=== PATIENT | female | born 1935 | race Caucasian/White ===

== ENCOUNTER 2021-10-20 11:27 | Emergency (ER) | payer OTHER ==
[~2021-10-20] VITALS: Ht 162.6 cm; Wt 74.8 kg
[~2021-10-20 11:27] MED LIST: ALENDRONATE SOD35 MG PO; CEPH500 PO; CRUTCH USE; DONE5 PO; ESTMETHS; HYZAAR; LISI5 PO; METF500C PO; Metoprolol Succ25 MG PO; OXYACE5T PO; SIMV10 PO; VENL37.5 PO
[2021-10-20] MEDS ORDERED: SERT50 PO (12:28)
[2021-10-20] MEDS ORDERED: ASPI325EC PO (12:29)
[2021-10-20] MEDS ORDERED: THERA-D2000 UNIT PO (12:30)
[2021-10-20] MEDS ORDERED: [UNRECOGNIZED DRUG - OTHER] (12:31)
[2021-10-20] MEDS ORDERED: TERB250 PO (12:31)
[2021-10-20 12:33] LABS: BASOPHILS ABSOLUTE AUTO 0.05 K/mm3 (0.00-0.23); BASOPHILS PERCENT AUTO 1 % (0-2); EOSINOPHILS ABSOLUTE AUTO 0.17 K/mm3 (0.00-0.68); EOSINOPHILS PERCENT AUTO 2 % (0-6); Hematocrit 39.3 % (33.0-51.0); Hemoglobin 12.6 g/dL (11.5-16.0); IMMATURE GRAN ABSOLUTE AUTO 0.05 K/mm3 (0.00-0.10); IMMATURE GRAN PERCENT AUTO 1 % (0-1); LYMPHOCYTES ABSOLUTE AUTO 1.37 K/mm3 (0.84-5.20); LYMPHOCYTES PERCENT AUTO 14 % (21-46); MONOCYTES ABSOLUTE AUTO 0.88 K/mm3 (0.16-1.47); MONOCYTES PERCENT AUTO 9 % (4-13); Mean Corpuscular HGB 30.6 pg (26.0-34.0); Mean Corpuscular HGB Conc 32.1 g/dL (31.5-36.5); Mean Corpuscular Volume 95 fL (80-100); Mean Platelet Volume 10.9 fL (9.1-12.4); NEUTROPHILS PERCENT AUTO 74 % (41-73); Platelet Count 215 K/mm3 (150-400); Red Blood Cell Count 4.12 M/mm3 (3.80-5.20); White Blood Cell Count 9.82 K/mm3 (4.00-11.30)
[2021-10-20 12:44] LABS: Bun/Creatinine Ratio 12.1 (12.0-20.0); Calcium, Blood 9.2 mg/dL (8.5-10.1); Creatinine, Blood 0.91 mg/dL (0.40-1.00); Potassium, Blood 3.5 mmol/L (3.5-5.5)
[2021-10-20 13:05] LABS: Source, Urine Clean Catch
[2021-10-20 13:12] LABS: Appearance, Urine Clear (Clear); Bilirubin, Urine Neg (Neg); Blood, Urine 1+ (Neg); Color, Urine Yellow (P-Yellow); Glucose Qualitative, Urine Neg (Neg); Ketones, Urine Neg (Neg); Leukocyte Esterase, Urine Neg (Neg); Nitrite, Urine Neg (Neg); Protein, Urine 2+ (Neg); Specific Gravity, Urine 1.025 (1.003-1.022); Urobilinogen, Urine 1+ (Normal)
[2021-10-20 13:21] LABS: Hyaline Casts 0-2 /lpf (0-2); Mucus Light (0-Heavy)
[2021-10-20 13:22] LABS: Bacteria Mod /hpf; Red Blood Cells, Urine Rare /hpf (0-2); Squamous Epithelial Cells Rare /hpf (Few); White Blood Cells, Urine 0-2 /hpf (0-5)
[2021-10-20 13:55] LABS: Influenza A, PCR NEGATIVE (NEGATIVE); Influenza B, PCR NEGATIVE (NEGATIVE); Resp Syncytial Virus, PCR NEGATIVE (NEGATIVE); SARS-Cov-2 (COVID-19) PCR, MMC NEGATIVE (NEGATIVE)
[2021-10-20] MEDS ORDERED: NITR100CA PO (15:46)
== END 2021-10-20 17:13 | disposition home or self-care (01) ==
LOC: ER 11:27
PROVIDERS: Student in an Organized Health Care Education/Training Program
DX: F01.50 Vascular dementia, unspecified severity, without behavioral disturbance, psychotic disturbance, mood disturbance, and anxiety (principal); N39.0 Urinary tract infection, site not specified; R29.6 Repeated falls; I10 Essential (primary) hypertension; E11.9 Type 2 diabetes mellitus without complications; Z20.822 Contact with and (suspected) exposure to COVID-19; Z73.6 Limitation of activities due to disability; Z88.8 Allergy status to other drugs, medicaments and biological substances; Z79.899 Other long term (current) drug therapy; Z79.84 Long term (current) use of oral hypoglycemic drugs; Z79.82 Long term (current) use of aspirin; Z86.73 Personal history of transient ischemic attack (TIA), and cerebral infarction without residual deficits
CPT/HCPCS: 0241U; 70450; 80048; 81001; 85025; 87086; 93005; 93010; 96374; 99284-25; A9270; J0360

== ENCOUNTER → 2022-04-05 | Outpatient (CLI) | payer OTHER ==
[~2022-04-05] MED LIST changes: +ASPI325EC PO; +NITR100CA PO; +SERT50 PO; +TERB250 PO; +THERA-D2000 UNIT PO; +[UNRECOGNIZED DRUG - OTHER]
[2022-04-06 13:09] LABS: Source, Urine Clean Catch
[2022-04-06 15:28] LABS: Appearance, Urine Clear (Clear); Bilirubin, Urine Neg (Neg); Blood, Urine Neg (Neg); Color, Urine Yellow (P-Yellow); Glucose Qualitative, Urine Neg (Neg); Ketones, Urine Neg (Neg); Leukocyte Esterase, Urine 2+ (Neg); Nitrite, Urine Pos (Neg); Protein, Urine Neg (Neg); Urobilinogen, Urine NORM (Normal)
[2022-04-06 15:39] LABS: Bacteria Many /hpf; Calcium Oxalate Crystals Mod /hpf; Red Blood Cells, Urine 0-2 /hpf (0-2); Squamous Epithelial Cells Mod /hpf (Few)
== END | disposition home or self-care (01) ==
LOC: LAB SHORT 15:50
PROVIDERS: Family Medicine
DX: N39.0 Urinary tract infection, site not specified (principal)
CPT/HCPCS: 81001; 87077; 87086; 87186

== ENCOUNTER → 2022-05-24 | Outpatient (CLI) | payer OTHER ==
[2022-05-24 20:22] LABS: Source, Urine Clean Catch
[2022-05-24 20:26] LABS: Bilirubin, Urine Neg (Neg); Blood, Urine 1+ (Neg); Glucose Qualitative, Urine Neg (Neg); Ketones, Urine Neg (Neg); Leukocyte Esterase, Urine 3+ (Neg); Nitrite, Urine Pos (Neg); Protein, Urine Neg (Neg); Specific Gravity, Urine 1.015 (1.003-1.022); Urobilinogen, Urine NORM (Normal)
[2022-05-24 20:36] LABS: Appearance, Urine Clear (Clear); Bacteria Mod /hpf; Color, Urine Yellow (P-Yellow); Red Blood Cells, Urine 0-2 /hpf (0-2); Squamous Epithelial Cells Not Seen /hpf (Few)
== END | disposition home or self-care (01) ==
LOC: LAB SHORT 11:00 → LAB 11:00
PROVIDERS: Family Medicine
DX: N39.0 Urinary tract infection, site not specified (principal)
CPT/HCPCS: 81001; 87077; 87086; 87186

== ENCOUNTER → 2022-07-20 | Outpatient (CLI) | payer OTHER ==
[2022-07-20 18:36] LABS: Source, Urine Clean Catch
[2022-07-20 19:49] LABS: Appearance, Urine Hazy (Clear); Bilirubin, Urine Neg (Neg); Blood, Urine 1+ (Neg); Color, Urine Yellow (P-Yellow); Glucose Qualitative, Urine Neg (Neg); Ketones, Urine Neg (Neg); Leukocyte Esterase, Urine 3+ (Neg); Nitrite, Urine Pos (Neg); Protein, Urine Neg (Neg); Specific Gravity, Urine 1.015 (1.003-1.022); Urobilinogen, Urine NORM (Normal)
[2022-07-20 20:01] LABS: Red Blood Cells, Urine 0-2 /hpf (0-2); White Blood Cells, Urine 25-50 /hpf (0-5)
[2022-07-20 20:02] LABS: Bacteria Many /hpf; Squamous Epithelial Cells Rare /hpf (Few)
== END ==
LOC: LAB 11:00 → LAB SHORT 11:00
PROVIDERS: Family Medicine
DX: N39.0 Urinary tract infection, site not specified (principal)
CPT/HCPCS: 81001; 87077; 87086; 87186

== ENCOUNTER → 2022-10-09 | Outpatient (CLI) | payer OTHER ==
[2022-10-10 12:45] LABS: Source, Urine Clean Catch
[2022-10-10 13:29] LABS: Appearance, Urine Clear (Clear); Bilirubin, Urine Neg (Neg); Blood, Urine 1+ (Neg); Color, Urine Yellow (P-Yellow); Glucose Qualitative, Urine Neg (Neg); Ketones, Urine Neg (Neg); Leukocyte Esterase, Urine 1+ (Neg); Nitrite, Urine Pos (Neg); Protein, Urine 1+ (Neg); Urobilinogen, Urine NORM (Normal)
[2022-10-10 14:23] LABS: Bacteria Many /hpf; Calcium Oxalate Crystals Few /hpf; Squamous Epithelial Cells Few /hpf (Few)
== END ==
LOC: LAB 12:39 → LAB SHORT 12:39
PROVIDERS: Family Medicine
DX: N39.0 Urinary tract infection, site not specified (principal)
CPT/HCPCS: 81001; 87077; 87086; 87186

== ENCOUNTER → 2023-04-24 | Outpatient (CLI) | payer OTHER ==
[2023-04-25 11:50] LABS: Source, Urine Clean Catch
[2023-04-25 14:23] LABS: Appearance, Urine Hazy (Clear); Bilirubin, Urine Neg (Neg); Blood, Urine 1+ (Neg); Color, Urine Yellow (P-Yellow); Glucose Qualitative, Urine Neg (Neg); Ketones, Urine Neg (Neg); Leukocyte Esterase, Urine 1+ (Neg); Nitrite, Urine Pos (Neg); Protein, Urine 1+ (Neg); Urobilinogen, Urine NORM (Normal)
[2023-04-25 15:15] LABS: Bacteria Many /hpf; Squamous Epithelial Cells Few /hpf (Few)
== END ==
LOC: LAB 11:48 → LAB SHORT 11:48
PROVIDERS: Family Medicine
DX: N39.0 Urinary tract infection, site not specified (principal)
CPT/HCPCS: 81001; 87077; 87086; 87186

== ENCOUNTER → 2023-05-24 | Outpatient (CLI) | payer OTHER ==
[2023-05-25 18:25] LABS: Appearance, Urine Hazy (Clear); Bilirubin, Urine Neg (Neg); Blood, Urine 1+ (Neg); Color, Urine Amber (P-Yellow); Glucose Qualitative, Urine Neg (Neg); Ketones, Urine Neg (Neg); Leukocyte Esterase, Urine 3+ (Neg); Nitrite, Urine Pos (Neg); Protein, Urine 1+ (Neg); Specific Gravity, Urine 1.025 (1.003-1.022); Urobilinogen, Urine NORM (Normal)
[2023-05-25 18:39] LABS: Bacteria Many /hpf; Calcium Oxalate Crystals Few /hpf; Squamous Epithelial Cells Mod /hpf (Few)
== END | disposition home or self-care (01) ==
LOC: LAB 18:28 → LAB SHORT 18:28
PROVIDERS: Family Medicine
DX: N39.0 Urinary tract infection, site not specified (principal)
CPT/HCPCS: 81001; 87077; 87086; 87186

== ENCOUNTER → 2023-06-02 | Outpatient (CLI) | payer OTHER ==
[2023-06-04 06:11] LABS: HEMOGLOBIN A1C 6.3 % (4.8-5.6)
== END | disposition home or self-care (01) ==
LOC: LAB SHORT 13:47 → LAB 13:47
PROVIDERS: Family Medicine
DX: E11.9 Type 2 diabetes mellitus without complications (principal)
CPT/HCPCS: 83036

== ENCOUNTER 2023-06-27 13:20 | Inpatient (IN) | payer OTHER ==
[~2023-06-27] VITALS: Ht 160 cm; Wt 57.1 kg
[2023-06-27 15:14] LABS: Albumin, Blood 2.4 g/dL (3.4-5.0); Albumin/Globulin Ratio 1.1 (0.8-1.8); Bilirubin, Total 0.4 mg/dL (0.1-1.0); Bun/Creatinine Ratio 36.2 (12.0-20.0); Calcium, Blood 6.8 mg/dL (8.5-10.1); Creatinine, Blood 0.66 mg/dL (0.40-1.00); Globulin, Blood 2.2 g/dL (2.2-4.0); Potassium, Blood 3.4 mmol/L (3.5-5.5); Total Protein, Blood 4.6 g/dL (6.4-8.2)
[2023-06-27 15:44] LABS: BASOPHILS ABSOLUTE AUTO 0.06 K/mm3 (0.00-0.23); BASOPHILS PERCENT AUTO 0 % (0-2); EOSINOPHILS ABSOLUTE AUTO 0.06 K/mm3 (0.00-0.68); EOSINOPHILS PERCENT AUTO 0 % (0-6); Hematocrit 43.4 % (33.0-51.0); Hemoglobin 14.5 g/dL (11.5-16.0); IMMATURE GRAN ABSOLUTE AUTO 0.11 K/mm3 (0.00-0.10); IMMATURE GRAN PERCENT AUTO 1 % (0-1); LYMPHOCYTES ABSOLUTE AUTO 1.45 K/mm3 (0.84-5.20); LYMPHOCYTES PERCENT AUTO 9 % (21-46); MONOCYTES ABSOLUTE AUTO 1.14 K/mm3 (0.16-1.47); MONOCYTES PERCENT AUTO 7 % (4-13); Mean Corpuscular HGB 30.1 pg (26.0-34.0); Mean Corpuscular HGB Conc 33.4 g/dL (31.5-36.5); Mean Corpuscular Volume 90 fL (80-100); Mean Platelet Volume 10.5 fL (9.1-12.4); NEUTROPHILS PERCENT AUTO 83 % (41-73); Platelet Count 222 K/mm3 (150-400); RDW Coefficient Variation 13.7 % (11.7-14.2); RDW Standard Deviation 45.4 fL (35.1-46.3); Red Blood Cell Count 4.82 M/mm3 (3.80-5.20); White Blood Cell Count 16.52 K/mm3 (4.00-11.30)
[2023-06-27 17:19] LABS: Source, Urine Straight Cath
[2023-06-27 17:24] LABS: Appearance, Urine Hazy (Clear); Bilirubin, Urine Neg (Neg); Blood, Urine 1+ (Neg); Color, Urine Yellow (P-Yellow); Glucose Qualitative, Urine Neg (Neg); Ketones, Urine 3+ (Neg); Leukocyte Esterase, Urine 3+ (Neg); Nitrite, Urine Pos (Neg); Protein, Urine 2+ (Neg); Urobilinogen, Urine NORM (Normal)
[2023-06-27 17:42] LABS: Amorphous Light (0-Heavy); Bacteria Many /hpf; Red Blood Cells, Urine 0-2 /hpf (0-2); Squamous Epithelial Cells Not Seen /hpf (Few); White Blood Cells, Urine 25-50 /hpf (0-5)
--- NOTE | 2023-06-27 19:35 | NUR ---
PT ADMIT PT ARRIVED FROM ER VIA GURNEY. PT VERY PAINFUL AND CONTINUES TO MAKE RANDOM STATEMENTS OF HER HEAD HURTING, AND "I AM GONNA " DAUGHTER W/ PT AND REPORTS TO STAY THE NIGHT. IVF W/ KCL INFUSING @100ML/HR TO L HAND. SKIN ASSESSMENT COMPLETED W/ NO VISIBLE CONCERNS. PEDAL PULSES PALPITABLE, PT DENIES N/T. REMOVED LINEN AND CHANGED ATTENDS AT THIS TIME. PUR WIC PLACED. WILL CONTINUE TO MONITOR PAIN AND MEDICATE PER EMAR.
[2023-06-27 19:53] VITALS: BP 185/119
[2023-06-28] VITALS (24 sets, daily range): BP systolic 98–194; BP diastolic 55–119
[2023-06-28 04:17] LABS: BASOPHILS ABSOLUTE AUTO 0.04 K/mm3 (0.00-0.23); BASOPHILS PERCENT AUTO 0 % (0-2); EOSINOPHILS ABSOLUTE AUTO 0.01 K/mm3 (0.00-0.68); EOSINOPHILS PERCENT AUTO 0 % (0-6); Hematocrit 39.4 % (33.0-51.0); Hemoglobin 12.7 g/dL (11.5-16.0); IMMATURE GRAN ABSOLUTE AUTO 0.04 K/mm3 (0.00-0.10); IMMATURE GRAN PERCENT AUTO 0 % (0-1); LYMPHOCYTES ABSOLUTE AUTO 1.29 K/mm3 (0.84-5.20); LYMPHOCYTES PERCENT AUTO 11 % (21-46); MONOCYTES ABSOLUTE AUTO 1.19 K/mm3 (0.16-1.47); MONOCYTES PERCENT AUTO 10 % (4-13); Mean Corpuscular HGB 29.5 pg (26.0-34.0); Mean Corpuscular HGB Conc 32.2 g/dL (31.5-36.5); Mean Corpuscular Volume 91 fL (80-100); Mean Platelet Volume 10.7 fL (9.1-12.4); NEUTROPHILS ABSOLUTE AUTO 9.27 K/mm3 (1.96-9.15); NEUTROPHILS PERCENT AUTO 78 % (41-73); Platelet Count 172 K/mm3 (150-400); RDW Coefficient Variation 13.7 % (11.7-14.2); RDW Standard Deviation 46.5 fL (35.1-46.3); Red Blood Cell Count 4.31 M/mm3 (3.80-5.20); White Blood Cell Count 11.84 K/mm3 (4.00-11.30)
[2023-06-28 04:41] LABS: Magnesium, Blood 2.1 mg/dL (1.6-2.4)
[2023-06-28 04:45] LABS: Albumin, Blood 3.3 g/dL (3.4-5.0); Albumin/Globulin Ratio 1.1 (0.8-1.8); Bilirubin, Total 0.6 mg/dL (0.1-1.0); Bun/Creatinine Ratio 28.6 (12.0-20.0); Calcium, Blood 8.7 mg/dL (8.5-10.1); Creatinine, Blood 0.73 mg/dL (0.40-1.00); Globulin, Blood 2.9 g/dL (2.2-4.0); Potassium, Blood 4.1 mmol/L (3.5-5.5); Total Protein, Blood 6.2 g/dL (6.4-8.2)
--- NOTE | 2023-06-28 04:59 | NUR ---
SHIFT SUMMARY ADMIT FOR L HIP FX R/T FALL FROM W/C. PT VERY PAINFUL T/O NIGHT. HX DEMENTIA @BASELINE. PT CONTINUES TO MAKE COMMENTS R/T SHE IS GONNA . DAUGHTER, LORE, IN ROOM FOR SUPPORT. PT MEDICATED X2 W/ 25MCG FENTANYL AND 1X NORCO 5MG, W/ MINIMAL RELIEF. ORTHO CONSULT W/ KRNACIK PLANNED FOR TODAY, NPO @MN. MINIMAL OUTPUT IN PUR WIC ATHOUGH 1000ML FLUIDS ADMINISTERED. BP CONTINUES TO BE ELEVATED, W/ LISINOPRIL SCHEDULED FOR TODAY. NO ACUTE CHANGES THIS SHIFT. ADVANCED DIRECTIVE ON FRONT OF CHART. CALL LIGHT W/IN REACH ALTHOUGH PT UNABLE TO USE R/T CONGNITION.
--- NOTE | 2023-06-28 10:10 | NUR ---
Pt resting in bed and is A&O to self only. Pt appears mildly anxious upon arrival but then closes her eyes and calms. Pt left undisturbed at this point. Called and spoke with Pt's son who is listed as Primary Healthcare Production Control Expert on advanced directive. Provided updated and reviewed plan of care. Discussed Pt's code status wishes. Ramana Ahuja reports Pt's wishes are DNR. Engaged in brief and gentle discussion regarding advanced care planning. Discussed the importance of planning for the future. Educated on disease process including trajectory. Offered therapeutic listening and answered questions. Discussed completing a POLST over the phone with Seymour requesting waiting until she is closer to D/C before completing POLST. Seymour expresses appreciation and reports no other concerns at this time. Spoke with Dr Kaye and relayed code status wishes. Placed DNR order in [facility] per V/O from Dr Kaye. Ramana Ahjua ([facility]) [phone] Palliative Care will remain available
--- NOTE | 2023-06-28 11:15 | NUR ---
PT TO OR AT THIS TIME
--- NOTE | 2023-06-28 11:33 | NUR ---
20G IV SITE L HAND, PATENT.
--- NOTE | 2023-06-28 11:54 | NUR ---
PATIENT C/O OF LEFT HIP PAIN. MEDICATED WITH FENTANYL 50MCG IV PER ORDERS. GOOD RELIEF WITH PAIN MED. PATIENT STATES "YES" TO HAVE GOOD PAIN RELIEF. CONTINUE TO MONITOR. FAMILY MEMBERS AT BEDSIDE. AWAITING IN DAY SURGERY FOR LEFT HIP SURGERY WITH DR SORIA.
[2023-06-28] MEDS ORDERED: QUET100 PO (13:26)
[2023-06-28] MEDS ORDERED: SENNA LAXATIVE8.6 MG PO (13:27)
[2023-06-28] MEDS ORDERED: ACET120S (13:28)
[2023-06-28] MEDS ORDERED: BISA10S (13:40)
[2023-06-28] MEDS ORDERED: HYDR1TAB94 PO (13:40)
[2023-06-28] MEDS ORDERED: ACET325 PO (13:41)
[2023-06-28] MEDS ORDERED: DULCOLAX400 MG/5 M PO (13:42)
[2023-06-28] MEDS ORDERED: Seroquel Xr50 MG PO (13:43)
--- NOTE | 2023-06-28 17:57 | NUR ---
POST OP: REPORT RECEIVED FROM TECHNICAL DEVELOPER ROSE. PT TO UNIT AT ABOUT 1600. PT IS DROWSY, BUT OPENS EYES AND ANSWERS TO NAME. SURGICAL SITE WNL. DIFFICULTLY WITH SPO2 PROBE READING A CONSISTANT HR. HR RANGED FROM 30 BPM TO 90. UPON ASCULTATION, HEART BEAT SOUNDS IRREGULAR. PT APPEARS CALM AND RESTFUL, DOES NOT REPORT CP. DR. WELDON MADE AWARE OF THE ABOVE AND TELE ORDERED. TELE APPLIED AND VERIFIED AT ABOUT 1700 WITH PCU DRY CLEANING MACHINE OPERATOR HELPER- PER TIPPLE SUPERVISORHAKEEM ALEMAN TELE READS NSR WITH BBB, HR 97. WILL CTM
[2023-06-29 02:39] VITALS: BP 127/73
[2023-06-29 05:17] LABS: BASOPHILS ABSOLUTE AUTO 0.01 K/mm3 (0.00-0.23); BASOPHILS PERCENT AUTO 0 % (0-2); EOSINOPHILS PERCENT AUTO 0 % (0-6); Hematocrit 33.5 % (33.0-51.0); Hemoglobin 11.1 g/dL (11.5-16.0); IMMATURE GRAN ABSOLUTE AUTO 0.06 K/mm3 (0.00-0.10); IMMATURE GRAN PERCENT AUTO 0 % (0-1); LYMPHOCYTES ABSOLUTE AUTO 1.34 K/mm3 (0.84-5.20); LYMPHOCYTES PERCENT AUTO 10 % (21-46); MONOCYTES ABSOLUTE AUTO 1.75 K/mm3 (0.16-1.47); MONOCYTES PERCENT AUTO 13 % (4-13); Mean Corpuscular HGB 30.1 pg (26.0-34.0); Mean Corpuscular HGB Conc 33.1 g/dL (31.5-36.5); Mean Corpuscular Volume 91 fL (80-100); Mean Platelet Volume 11.4 fL (9.1-12.4); NEUTROPHILS ABSOLUTE AUTO 10.21 K/mm3 (1.96-9.15); NEUTROPHILS PERCENT AUTO 76 % (41-73); Platelet Count 154 K/mm3 (150-400); RDW Coefficient Variation 13.8 % (11.7-14.2); RDW Standard Deviation 46.4 fL (35.1-46.3); Red Blood Cell Count 3.69 M/mm3 (3.80-5.20); White Blood Cell Count 13.37 K/mm3 (4.00-11.30)
--- NOTE | 2023-06-29 05:33 | NUR ---
SHIFT SUMMARY POD 1 L HIP PINNING, GAUZE/ PRESSURE TAP TO SITE. DX DEMENTIA, PLEASANTLY CONFUSED, CALLS OUT FOR HELP FREQUENTLY BUT UNABLE TO RECALL WHY. NEW IV TO R FA @80/HR. TELE IN PLACE ST@108 PER ELECTRICAL ASSEMBLER. HX OF HTN. USE OF O2 2L NC BUT PT CONTINUES TO REMOVE FROM FACE AND BECOMES IRRITABLE WHEN STAFF CONTINUES TO REPLACE.INCONTINENT W/ ATTENDS IN PLACE. NO ACUTE CHANGES THIS SHIFT. CALL LIGHT W/IN REACH ALTHOUGH PT COGNITIVELY UNABLE TO USE.
[2023-06-29 05:41] LABS: Bun/Creatinine Ratio 21.4 (12.0-20.0); Calcium, Blood 8.5 mg/dL (8.5-10.1); Creatinine, Blood 0.84 mg/dL (0.40-1.00); Magnesium, Blood 1.8 mg/dL (1.6-2.4); Potassium, Blood 4.2 mmol/L (3.5-5.5)
[2023-06-29 07:04] VITALS: BP 126/85
--- NOTE | 2023-06-29 11:58 | NUR ---
CALL TO ORE GRADER NOTIFIED THIS RN OF RUN OF SVT. PATIENT SITTING IN CHAIR, HAS NO COMPLAINTS, APPEARS TO BE COMFORTABLE. CALL TO DR VILLARREAL TO [facility], NO ORDERS RECEIVED.
[2023-06-29 15:16] VITALS: BP 96/70
--- NOTE | 2023-06-29 17:05 | NUR ---
SHIFT SUMMARY NO ACUTE CHANGES THIS SHIFT. PATIENT UP TO CHAIR T/O SHIFT WITH PHYSICAL THERAPY. PATIENT SLEPT MOST OF SHIFT, MEDICATED FOR PAIN WHEN PATIENT APPEARED PAINFUL. DRESSINGS IN [facility], C/D/I. WILL REPORT TO ONCOMING RN AT 1900.
[2023-06-29 19:45] VITALS: BP 120/92
[2023-06-29 22:39] VITALS: BP 157/84
--- NOTE | 2023-06-29 23:00 | NUR ---
TELE CALLED TO REPORT HR IN THE 150'S FOR ABOUT 5 BEATS NOT SUSTANING, CALL PLACED TO RESIDENT NO ORDERS RECIEVED. HOME MED SEROQUEL ORDER RECIEVED. VSS. BED ALARM ON.
[2023-06-30 03:28] VITALS: BP 113/78
--- NOTE | 2023-06-30 04:47 | NUR ---
SHIFT SUMMARYPATIENT AOX1. CALLS OUT T/O NIGHT. TAKE MEDS CRUSHED IN PUDDING. TELE IN PLACE, S[place] IN 110-120'S. 2 PERSON TRANSFER WITH GB TO BED. ATTENDS CHANGED PRN, INCONT. WITH VOIDS. BED ALARM IS IN PLACE. HOME DOSE SEROQUEL ORDERED AND ADMINISTERED. PATIENT ABLE TO GET SOME REST. REPOSITION PRN. BP WNL. CALL LIGHT IN REACH. WILL REPORT TO DAY NURSE.
[2023-06-30 05:35] LABS: BASOPHILS ABSOLUTE AUTO 0.06 K/mm3 (0.00-0.23); BASOPHILS PERCENT AUTO 1 % (0-2); EOSINOPHILS ABSOLUTE AUTO 0.18 K/mm3 (0.00-0.68); EOSINOPHILS PERCENT AUTO 2 % (0-6); Hematocrit 28.7 % (33.0-51.0); Hemoglobin 9.4 g/dL (11.5-16.0); IMMATURE GRAN ABSOLUTE AUTO 0.05 K/mm3 (0.00-0.10); IMMATURE GRAN PERCENT AUTO 1 % (0-1); LYMPHOCYTES ABSOLUTE AUTO 1.44 K/mm3 (0.84-5.20); LYMPHOCYTES PERCENT AUTO 17 % (21-46); MONOCYTES ABSOLUTE AUTO 1.12 K/mm3 (0.16-1.47); MONOCYTES PERCENT AUTO 13 % (4-13); Mean Corpuscular HGB 30.3 pg (26.0-34.0); Mean Corpuscular HGB Conc 32.8 g/dL (31.5-36.5); Mean Corpuscular Volume 93 fL (80-100); NEUTROPHILS ABSOLUTE AUTO 5.79 K/mm3 (1.96-9.15); NEUTROPHILS PERCENT AUTO 67 % (41-73); Platelet Count 124 K/mm3 (150-400); RDW Coefficient Variation 13.8 % (11.7-14.2); RDW Standard Deviation 46.7 fL (35.1-46.3); White Blood Cell Count 8.64 K/mm3 (4.00-11.30)
[2023-06-30 07:14] VITALS: BP 107/73
[2023-06-30 09:30] LABS: Hematocrit 29.8 % (33.0-51.0); Hemoglobin 9.7 g/dL (11.5-16.0)
--- NOTE | 2023-06-30 11:37 | NUR ---
DISCHARGE: PER DR. FARIAS HGB AND TELE STABLE FOR DC. THIS RN ATTEMPTED TO CALL [facility] TO GIVE RN REPORT, MESSAGE LEFT AND AWAITING CALL BACK. PT HELPED TO GET DRESSED IN OWN CLOTHES AND IV DC'D BY G[employer]. TRANSPORT HERE AT 1100. PT TRANSFERED TO WHEELCHAIR WITH 3 ASSIST. TRANSPORTER GIVEN PACKET AND EXTRA AQUACEL DRESSINGS. PT DAUGHTER PRESENT TO SIGN PAPERWORK FOR ACCOUNT ENGINEER, RODOLFO. PT LEFT UNIT VIA WHEELCHAIR WITH TRANSPORT AT 1115
== END 2023-06-30 12:00 | disposition home or self-care (01) | DRG 480 ==
LOC: ER 13:20 → SURS 18:19
PROVIDERS: Emergency Medicine; Family Medicine; Orthopaedic Surgery; ADMIT Internal Medicine
PROC: 0QS736Z Reposition Left Upper Femur with Intramedullary Internal Fixation Device, Percutaneous Approach (ICD-10-PCS; 2023-06-28)
PROC: 3E03329 Introduction of Other Anti-infective into Peripheral Vein, Percutaneous Approach (ICD-10-PCS; principal; 2023-06-28 13:00)
DX: S72.142A Displaced intertrochanteric fracture of left femur, initial encounter for closed fracture (principal); A41.51 Sepsis due to Escherichia coli [E. coli]; N39.0 Urinary tract infection, site not specified; F03.90 Unspecified dementia, unspecified severity, without behavioral disturbance, psychotic disturbance, mood disturbance, and anxiety; E11.9 Type 2 diabetes mellitus without complications; I10 Essential (primary) hypertension; D64.89 Other specified anemias; E78.00 Pure hypercholesterolemia, unspecified; F99 Mental disorder, not otherwise specified; W05.0XXA Fall from non-moving wheelchair, initial encounter; Z88.0 Allergy status to penicillin; Z88.5 Allergy status to narcotic agent; Z88.2 Allergy status to sulfonamides; Z88.8 Allergy status to other drugs, medicaments and biological substances; Z88.1 Allergy status to other antibiotic agents; Z79.84 Long term (current) use of oral hypoglycemic drugs; Z79.82 Long term (current) use of aspirin; Z79.899 Other long term (current) drug therapy; Z86.73 Personal history of transient ischemic attack (TIA), and cerebral infarction without residual deficits; Z90.89 Acquired absence of other organs; Z90.710 Acquired absence of both cervix and uterus
CPT/HCPCS: 36415; 70450; 71045; 73502; 80048; 80053; 81001; 82947; 83735; 85014; 85018; 85025; 87077; 87086; 87186; 93005; 93010; 96361; 96374; 96375; 96376; 97162; 97530; 99285-25; A9270; C1713; C1769; J0360; J0690; J0696; J1100; J1650; J2270; J2371; J2405; J2704; J3010; J3370; J3480; J7042; J7120; P9612